=== PATIENT | female | born 1930 | race Two or more races ===

== ENCOUNTER 2016-08-27 11:37 | Observation (INO) | payer OTHER ==
[~2016-08-27] VITALS: Ht 152.4 cm; Wt 59.9 kg
[~2016-08-27 11:37] MED LIST: LEVO125T6 PO; LIS10T PO
[2016-08-27] MEDS ORDERED: SODIUM CHLORIDE 0.9% 1,000 ML IV ONE (11:58)
[2016-08-27] MEDS ORDERED: ASPirin 81 mg TAB PO ONE (12:00)
[2016-08-27] MEDS ORDERED: VANCOMYCIN 1GM/250ML D5W 250 ML IV ONE (12:00)
[2016-08-27 12:31] LABS: Basophils # (auto) 0 uL; Basophils % (auto) 0.5 % (0.0-2.0); CONDITION Y; Eosinophils # (auto) 0.1 uL; Eosinophils % (auto) 1.1 % (0.0-7.0); Hematocrit 32.6 % (36.0-46.0); Hemoglobin 10.8 g/dL (12.2-16.2); Lymphocytes # (auto) 2.1 uL; Mean Corpuscular Hemoglobin 28.1 pg (28.0-32.0); Mean Corpuscular Hgb Conc. 33.2 g/dL (32.0-36.0); Mean Corpuscular Volume 84.5 fL (80.0-100.0); Mean Platelet Volume 7.7 fL (7.4-10.4); Monocytes # (auto) 0.7 uL; Monocytes % (auto) 8.2 % (0.0-12.0); Neutrophils # (auto) 6.1 uL; Neutrophils % (auto) 67.2 % (37.0-80.0); Platelet Count (auto) 335 10^3/uL (140-450); Red Cell Distribution Width 16.1 % (11.6-16.0); White Blood Cell 9.1 10^3/uL (4.4-10.8)
[2016-08-27 14:26] LABS: Albumin 3.1 g/dL (3.4-5.0); BUN/Creatinine Ratio 21.6; Bilirubin, Total 0.4 mg/dL (0.2-1.0); Calcium 8.5 mg/dL (8.5-10.1); Magnesium 2.4 mg/dL (1.6-2.6); Potassium 4.2 mmol/L (3.5-5.1); Total Protein 7.7 g/dL (6.4-8.2)
[2016-08-27 14:59] VITALS: BP 119/61
== END 2016-08-27 15:36 | disposition home or self-care (01) | DRG 313 ==
LOC: ER 11:40 → OVERFLOW 12:00 → ER 15:22
PROVIDERS: ADMIT Family Medicine; ATTEND Family Medicine
DX: R07.89 Other chest pain (principal); L03.213 Periorbital cellulitis; H10.9 Unspecified conjunctivitis; I10 Essential (primary) hypertension; F03.90 Unspecified dementia, unspecified severity, without behavioral disturbance, psychotic disturbance, mood disturbance, and anxiety; Z85.118 Personal history of other malignant neoplasm of bronchus and lung; Z85.528 Personal history of other malignant neoplasm of kidney
CPT/HCPCS: 36415; 70486; 71020; 80053; 83735; 84443; 84484; 85025; 93005; 96361; 96365; 99285; G0378; J3370; J7030

== ENCOUNTER 2017-04-13 17:38 | Emergency (ER) | payer OTHER ==
[~2017-04-13 17:38] MED LIST changes: -LEVO125T6 PO; +LEVO125T7 PO
[2017-04-13] MEDS ORDERED: ONDANSETRON HCL 4 MG/2 ML VIAL IV ONE (18:45)
[2017-04-13] MEDS ORDERED: MORPHINE SULFATE 4 MG/ML SYR/VIAL IV ONE (18:45)
[2017-04-13] MEDS ORDERED: ETOMIDATE (2MG/ML) 20ML VIAL IV ONE (19:45)
[2017-04-13 21:57] LABS: Basophils % (auto) 0.4 % (0.0-2.0); Eosinophils # (auto) 0.2 uL; Hemoglobin 9.9 g/dL (12.2-16.2); Monocytes # (auto) 0.6 uL
[2017-04-13 21:58] LABS: Basophils # (auto) 0.1 uL; Eosinophils % (auto) 1.5 % (0.0-7.0); Hematocrit 30.9 % (36.0-46.0); Lymphocytes # (auto) 2.2 uL; Lymphocytes % (auto) 18.8 % (10.0-50.0); Mean Corpuscular Hemoglobin 26.4 pg (28.0-32.0); Mean Corpuscular Volume 82.6 fL (80.0-100.0); Monocytes % (auto) 5.4 % (0.0-12.0); Neutrophils # (auto) 8.5 uL; Neutrophils % (auto) 73.9 % (37.0-80.0); Platelet Count (auto) 307 10^3/uL (140-450); Red Blood Cells 3.74 10^6/uL (4.0-5.20); Red Cell Distribution Width 17.1 % (11.8-14.3); White Blood Cell 11.5 10^3/uL (4.4-10.8)
[2017-04-13 22:08] LABS: Albumin 3.5 g/dL (3.4-5.0); Bilirubin, Total 0.2 mg/dL (0.2-1.0); Calcium 8.5 mg/dL (8.5-10.1)
[2017-04-13 23:05] VITALS: BP 120/56
== END 2017-04-14 00:12 | disposition home or self-care (01) ==
LOC: ER 17:38
DX: S42.351A Displaced comminuted fracture of shaft of humerus, right arm, initial encounter for closed fracture (principal); I10 Essential (primary) hypertension; R42 Dizziness and giddiness; E07.9 Disorder of thyroid, unspecified; Z88.0 Allergy status to penicillin; Z79.899 Other long term (current) drug therapy; W01.0XXA Fall on same level from slipping, tripping and stumbling without subsequent striking against object, initial encounter; Y93.89 Activity, other specified; Y99.8 Other external cause status; Y92.89 Other specified places as the place of occurrence of the external cause
CPT/HCPCS: 24500; 36415; 70450; 73020; 73060; 80053; 85025; 96374; 96375; 99152; 99285; J2270; J2405; J7030